=== PATIENT | female | born 1990 | race Caucasian/White ===

== ENCOUNTER 2022-05-08 14:52 | Emergency (ER) | payer OTHER, SELFPAY ==
[2022-05-08 14:57] VITALS: BP 138/74; PULSE 93; RESP 16; TEMP 36.6; O2SAT 98; BMI 37.0
--- NOTE | 2022-05-08 15:00 | ED.GENADULT ---
HPI - General Adult General Chief complaint: Eye Problems <PANCHO Cortes - Last Filed: 05/08/22 15:01> Stated complaint: nail glue in L eye <PANCHO Cortes - Last Filed: 05/08/22 15:01> Time Seen by Provider: 05/08/22 15:09 <PANCHO Cortes - Last Filed: 05/08/22 15:01> Source: patient <PANCHO Lindo - Last Filed: 05/08/22 17:05> Mode of arrival: ambulatory <PANCHO Lindo - Last Filed: 05/08/22 17:05> History of Present Illness HPI narrative: 32-year-old female with no significant past medical history presenting to the ED complaining of left eye irritation, and erythema s/p getting nail glue into eye while at work [employer]. 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 Admits was wearing protective goggles. Reports mild blurry vision/tearing. Reports initially eye was glued shut, but was able to open with warm water compresses. Irrigated eye immediately after incident. Denies direct injury, fall/trauma, vision loss, headache. Denies ring contacts. Does were glasses. <PANCHO Lindo - Last Filed: 05/08/22 17:05> Onset (ago): hour(s) <PANCHO Lindo - Last Filed: 05/08/22 17:05> Related Data Home medications: Previous Rx's Medication Instructions Recorded erythromycin 5 mg/gram (0.5 %) eye 0.5 inch ophthalmic (eye) QID 7 05/08/22 ointment days #3.5 grams <PANCHO Cortes - Last Filed: 05/08/22 15:01> Allergies/adverse reactions: Allergies Allergy/AdvReac Type Severity Reaction Status Date / Time No Known Allergies Allergy Verified 05/08/22 14:57 <PANCHO Cortes - Last Filed: 05/08/22 15:01> Review of Systems Review of Systems: Constitutional: No Fever, No Chills, No Fatigue, No Malaise ENT/Mouth: No Ear Pain, No Nasal Congestion, No sore throat, No Rhinorrhea, No Swallowing Difficulty Eyes: + Eye Pain, No Swelling, + Redness, + Foreign Body, No Discharge, + Vision Changes Cardiovascular: No Chest Pain, No SOB, No Palpitations Respiratory: No Cough, No Sputum, No Dyspnea Gastrointestinal: No Nausea, No Vomiting, No Diarrhea, No Constipation, No Abdominal pain Musculoskeletal: No joint pain, No Myalgias, No Joint Swelling Skin: No Skin Lesions, No rash Neuro: No Weakness, No Numbness, No Headache <PANCHO Lindo - Last Filed: 05/08/22 17:05> Yes all other systems are reviewed and are negative <PANCHO Lindo - Last Filed: 05/08/22 17:05> Constitutional: Constitutional: Reports as per HPI <PANCHO Lindo Last Filed: 05/08/22 17:05> [facility] Past Medical History Attestation statement: The following information was validated with the patient. <PANCHO Lindo - Last Filed: 05/08/22 17:05> Social History Social History: Social History Advance Directives: No Advance Directives Information Provided: No <PANCHO Cortes - Last Filed: 05/08/22 15:01> Physical Exam ED Vital Signs: Vital Signs - 24 hr 05/08/22 14:57 Temperature 98 F Pulse Rate 93 Respiratory Rate 16 Blood Pressure 138/74 Pulse Oximetry 98 Oxygen Delivery Method Room Air BMI result Body Mass Index 37.0 <PANCHO Cortes - Last Filed: 05/08/22 15:01> Vital Signs - 24 hr 05/08/22 14:57 Temperature 98 F Pulse Rate 93 Respiratory Rate 16 Blood Pressure 138/74 Pulse Oximetry 98 Oxygen Delivery Method Room Air BMI result Body Mass Index 37.0 <PANCHO Lindo Last Filed: 05/08/22 17:05> Const General: cooperative, healthy appearing, comfortable and no acute distress <PANCHO Lindo Last Filed: 05/08/22 17:05> Orientation/consciousness: patient oriented x3 <PANCHO Lindo Last Filed: 05/08/22 17:05> Limitations: no limitations <PANCHO Lindo Last Filed: 05/08/22 17:05> HENMT Head: Yes normal to inspection and Yes atraumatic <PANCHO Lindo - Last Filed: 05/08/22 17:05> Ears: hearing grossly normal bilaterally <PANCHO Lindo - Last Filed: 05/08/22 17:05> General nose exam: Normal external nose present <PANCHO Lindo - Last Filed: 05/08/22 17:05> Face and sinus: Yes normal facial exam <PANCHO Lindo - Last Filed: 05/08/22 17:05> Eyes Other: + dry clue noted to left lower eyelashes. <PANCHO Lindo - Last Filed: 05/08/22 17:05> General: appearance normal, both eyes and all related structures <PANCHO Lindo - Last Filed: 05/08/22 17:05> Conjunctivae: conjunctival abnormal left conjunctival injection localized (medial aspect) <PANCHO Lindo - Last Filed: 05/08/22 17:05> Corneas: corneas abnormal on the left foreign body at clock position (9 o'clock); without a rust ring; without dendrites present and without ulcerations and fluorescein used <PANCHO Lindo - Last Filed: 05/08/22 17:05> Pupils: Equal, round and reactive pupils present <PANCHO Lindo - Last Filed: 05/08/22 17:05> EOM: EOMs intact bilaterally <PANCHO Lindo - Last Filed: 05/08/22 17:05> Direct Ophthalmoscopy: normal light reflex and no photophobia <PANCHO Lindo - Last Filed: 05/08/22 17:05> Neck Neck: Yes normal visual inspection and Yes no meningeal signs <PANCHO Lindo - Last Filed: 05/08/22 17:05> Resp Effort & Inspection: normal respiratory effort and no respiratory distress <PANCHO Lindo - Last Filed: 05/08/22 17:05> Cardio Rate: regular rate <PANCHO Lindo - Last Filed: 05/08/22 17:05> Skin Rashes: no rashes <PANCHO Lindo - Last Filed: 05/08/22 17:05> Wounds: no wounds <PANCHO Lindo Last Filed: 05/08/22 17:05> Neuro General: patient oriented x3, tone normal and no meningeal signs <PANCHO Lindo Last Filed: 05/08/22 17:05> Cranial nerves: Yes Equal, round and reactive pupils present <PANCHO Lindo Last Filed: 05/08/22 17:05> Gait exam (Neuro): Normal gait present <PANCHO Lindo Last Filed: 05/08/22 17:05> Extrem General: Yes normal to inspection <PANCHO Lindo Last Filed: 05/08/22 17:05> Course Course Course Narrative: RME performed by Beverly Zapata PA-C. Patient is a 32 year old female presenting to the emergency department with nail glue in her left eye. Patient states that she was working with a client when she got glue flicked into her left eye. Patient placed back in the waiting room pending room availability. <PANCHO Cortes - Last Filed: 05/08/22 15:01> Medications Administered Discontinued Medications Generic Name Dose Route Start Last Admin Trade Name Freq PRN Reason Stop Dose Admin Fluorescein Sodium 1 strip 05/08/22 15:09 05/08/22 15:18 Fluorescein Sodium Strip EYE-LEFT 05/08/22 15:10 1 strip ONCE ONE Administration Tetracaine HCl 3 drop 05/08/22 15:09 05/08/22 15:18 Tetracaine Hcl/Pf 0.5% Oph Lynda 4 Ml Drops EYE-LEFT 05/08/22 15:10 3 drop ONCE ONE Administration <PANCHO Cortes - Last Filed: 05/08/22 15:01> Medications Administered Discontinued Medications Generic Name Dose Route Start Last Admin Trade Name Freq PRN Reason Stop Dose Admin Fluorescein Sodium 1 strip 05/08/22 15:09 05/08/22 15:18 Fluorescein Sodium Strip EYE-LEFT 05/08/22 15:10 1 strip ONCE ONE Administration Tetracaine HCl 3 drop 05/08/22 15:09 05/08/22 15:18 Tetracaine Hcl/Pf 0.5% Oph Lynda 4 Ml Drops EYE-LEFT 05/08/22 15:10 3 drop ONCE ONE Administration <PANCHO Lindo - Last Filed: 05/08/22 17:05> Medical Decision Making Medical Decision Making MDM Narrative: 32-year-old female with no significant past medical history presenting to the ED complaining of left eye irritation, and erythema s/p getting nail glue into eye while at work [employer]. On exam vital signs stable, NAD, nontoxic appearing, physical exam as noted above with dry glue to left lower eyelid with conjunctival injection and fluorescein uptake with small area of glue noted at 09:00 o'clock position. No evidence of trauma. PERRLA. No evidence of preseptal/septal cellulitis. No ulceration Plan: Visual acuity, fluorescein staining, ophthalmology consult Results discussed with patient including worrisome signs and symptoms and strict return precautions, and when to return to the emergency department. They verbalized understanding and feel safe for discharge at this time. <PANCHO Lindo - Last Filed: 05/08/22 17:05> Differential Diagnosis Differential Diagnoses: The differential diagnosis associated with the presentation includes <PANCHO Lindo - Last Filed: 05/08/22 17:05> As above <PANCHO Lindo - Last Filed: 05/08/22 17:05> Consult Healthcare Provider Management of the patient was discussed with: Senior [employer] Consultant <PANCHO Lindo Last Filed: 05/08/22 17:05> Dr. Keene, recommended erythromycin ointment <PANCHO Lindo - Last Filed: 05/08/22 17:05> External Record Review External record reviewed: Office record <PANCHO Lindo Last Filed: 05/08/22 17:05> Prescription Management I considered prescription management with: Pain Medication and Antibiotic <PANCHO Lindo Last Filed: 05/08/22 17:05> Discharge Plan Discharge Clinical Impression: Foreign body in eye <PANCHO Cortes Last Filed: 05/08/22 15:01> Patient Disposition: Home, Self-Care <PANCHO Cortes Last Filed: 05/08/22 15:01> Instructions: Eye Foreign Body (ED) <PANCHO Cortes Last Filed: 05/08/22 15:01> Additional Instructions: You have glue in her eye. This will dissipate on its own in the next several hours. Erythromycin ointment is a topical antibiotic ointment, please use as prescribed. Avoid putting anything in her eyes. Please follow-up with ophthalmology/your PCP. If her symptoms persist or worsen, you develops vision loss, persistent or worsening pain return to the ED <PANCHO Cortes - Last Filed: 05/08/22 15:01> Prescriptions: New erythromycin 5 mg/gram (0.5 %) ointment 0.5 inch ophthalmic (eye) QID 7 Days Qty: 3.5 0RF <PANCHO Cortes - Last Filed: 05/08/22 15:01> Referrals: Russ Keene [Physician] - 5 days Physician,Unknown J [Primary Care Provider] - 1 week <PANCHO Cortes - Last Filed: 05/08/22 15:01>
[2022-05-08] MEDS: Tetracaine HCl/PF 0.5% Oph Sol 4 ML DROPS 3 DROP EYE-LEFT (15:18)
[2022-05-08] MEDS: Fluorescein Sodium STRIP 1 STRIP EYE-LEFT (15:18)
== END 2022-05-08 17:16 | disposition home or self-care (01) ==
PROVIDERS: Emergency Provider Student in an Organized Health Care Education/Training Program
DX: H57.12 Ocular pain, left eye (principal); Z79.899 Other long term (current) drug therapy
CPT/HCPCS: 99282; 99283